=== PATIENT | male | born 2000 | race African-American/Black ===

== ENCOUNTER 2023-09-13 08:26 | Emergency (ER) | payer SELFPAY ==
[~2023-09-13] VITALS: Ht 172.7 cm; Wt 57.0 kg
[2023-09-13 08:33] VITALS: O2SAT 100
[2023-09-13 10:40] VITALS: BP 127/81; PULSE 70; RESP 16; TEMP 98.4
== END 2023-09-13 10:50 | disposition home or self-care (01) ==
LOC: ER 09:12
DX: A63.0 Anogenital (venereal) warts (principal)
CPT/HCPCS: 99281